=== PATIENT | female | born 1980 | race Caucasian/White ===

== ENCOUNTER 2019-05-27 03:48 | Emergency (ER) | payer OTHER, SELFPAY ==
[~2019-05-27] VITALS: Ht 157.5 cm; Wt 82.6 kg
[2019-05-27] MEDS ORDERED: L.E.T SOLUTION TP ONE ×4 (05:00→05:43)
[2019-05-27] MEDS ORDERED: LIDOCAINE-MPF 1%, 2ML INFIL ONE (05:00)
[2019-05-27] MEDS ORDERED: LIDOCAINE-MPF 1%, 2ML ONE (05:04)
[2019-05-27] MEDS ORDERED: PLEASE ENTER ALLERGIES MC SCH (05:30)
--- NOTE | 2019-05-27 05:54 | NUR ---
pt with large, full thickness laceration arcoss her forhead. pt states she was walking home from the bar and she fell and hit her head on the sidewalk. pt denies loc, n/v, headache. pt reports that she only feels the swelling surrounding the lac. pt tearful and expresses concerns on how her face will look after repair. reassurance provided.
[2019-05-27] MEDS ORDERED: LIDOCAINE 1%-EPI 1:100K, 20ML ONE (06:09)
--- NOTE | 2019-05-27 06:33 | NUR ---
hafsa in to repair lac
--- NOTE | 2019-05-27 06:57 | NUR ---
report receivef from Aditi trevizo.
[2019-05-27] MEDS ORDERED: NEOSPORIN OINT. PKT 1 PACKET ONE (07:23)
--- NOTE | 2019-05-27 07:35 | NUR ---
dressing applied by emt. pt tolerated well.
[2019-05-27 07:36] VITALS: BP 129/88
--- NOTE | 2019-05-27 07:50 | NUR ---
Patient given discharge instructions and they have confirmed that they understand the instructions. Patient ambulatory with steady gait.
== END 2019-05-27 07:52 | disposition home or self-care (01) ==
LOC: ED 07:42
DX: S01.81XA Laceration without foreign body of other part of head, initial encounter (principal); S09.90XA Unspecified injury of head, initial encounter; F10.220 Alcohol dependence with intoxication, uncomplicated; W22.8XXA Striking against or struck by other objects, initial encounter; Y93.89 Activity, other specified; Y92.410 Unspecified street and highway as the place of occurrence of the external cause; Y99.8 Other external cause status; Y90.9 Presence of alcohol in blood, level not specified
CPT/HCPCS: 12052; 70450; 99284

== ENCOUNTER 2019-06-01 10:39 | Emergency (ER) | payer OTHER ==
[~2019-06-01] VITALS: Ht 157.5 cm; Wt 82.6 kg
[2019-06-01 10:42] VITALS: BP 140/74
--- NOTE | 2019-06-01 10:54 | NUR ---
PT HERE FOR POSSIBLE SUTURE REMOVAL, STATES SEEN "EITHER MONDAY OR MONDAY." LEFT FOREHEAD LAC HAS SUTURES CURRENTLY, WELL-APPROXIMATED.
[2019-06-01] MEDS ORDERED: IBUPROFEN 200 MG TABLET ONE (11:37)
--- NOTE | 2019-06-01 11:46 | NUR ---
PT MEDICATED PER ORDERS.
--- NOTE | 2019-06-01 11:48 | NUR ---
Patient/Caregiver given discharge instructions and they have confirmed that they understand the instructions. Patient ambulatory with steady gait.
[2019-06-01] MEDS ORDERED: NEOSPORIN OINT. PKT 1 PACKET ONE (11:49)
[2019-06-01] MEDS ORDERED: IBUPROFEN 200 MG TABLET PO ONE (12:00)
== END 2019-06-01 11:51 | disposition home or self-care (01) ==
LOC: ED 10:59
DX: S01.81XD Laceration without foreign body of other part of head, subsequent encounter (principal); X58.XXXD Exposure to other specified factors, subsequent encounter; Z48.02 Encounter for removal of sutures
CPT/HCPCS: 99282